=== PATIENT | male | born 1985 | race Caucasian/White ===

== ENCOUNTER 2017-05-14 09:42 | Emergency (ER) | payer OTHER ==
[2017-05-14 09:50] VITALS: BP 128/83
--- NOTE | 2017-05-14 10:19 | Emergency Department Report ---
ED Male HPI - General Chief complaint: Urogenital-Male Stated complaint: BURNING WITH UNRINATION Time Seen by Provider: 05/14/17 09:54 Source: patient Mode of arrival: Ambulatory Limitations: No Limitations - History of Present Illness Initial comments: 34-year-old male comes in for complaint of pain and burning with urination he reports positive discharge from the penis he reports that he was sexually active with the female will that the condom broke about 1-1/2 weeks ago and by a week ago he's been having dysuria and penile discharge and pain. Patient currently has no past medical history only of meningitis as a child, no known drug allergies. MD Complaint: penile discharge Location: penis Severity: mild Severity scale (0 -10): 0 - Related Data Previous Rx's Medication Instructions Recorded Last Taken Type Ciprofloxacin HCl [Ciprofloxacin 500 mg PO Q12H #20 tab 08/20/15 Unknown Rx TAB] Ibuprofen [Motrin 600 MG tab] 600 mg PO Q8H PRN #30 tablet 08/20/15 Unknown Rx Phenazopyridine [Pyridium] 100 mg PO TID #6 tab 08/20/15 Unknown Rx Doxycycline [Vibramycin CAP] 100 mg PO Q12HR 10 Days #20 capsule 05/14/17 Unknown Rx Allergies Allergy/AdvReac Type Severity Reaction Status Date / Time No Known Allergies Allergy Verified 08/20/15 08:58 ED Review of Systems ROS: Stated complaint: BURNING WITH UNRINATION Other details as noted in HPI Constitutional: denies: chills, fever Eyes: denies: eye pain, eye discharge, vision change ENT: denies: ear pain, throat pain Respiratory: denies: cough, shortness of breath, wheezing Cardiovascular: as per HPI Endocrine: no symptoms reported Gastrointestinal: denies: abdominal pain, nausea, diarrhea Genitourinary: dysuria, hematuria, discharge Musculoskeletal: denies: back pain, joint swelling, arthralgia Skin: denies: rash, lesions Neurological: denies: headache, weakness, paresthesias Psychiatric: denies: anxiety, depression Hematological/Lymphatic: denies: easy bleeding, easy bruising ED Past Medical Hx - Past Medical History Additional medical history: meningitis as a child - Surgical History Additional Surgical History: L hand - Social History Smoking Status: Current Every Day Smoker Substance Use Type: Alcohol - Medications Home Medications: Home Medications Medication Instructions Recorded Confirmed Last Taken Type Ciprofloxacin HCl [Ciprofloxacin 500 mg PO Q12H #20 tab 08/20/15 Unknown Rx TAB] Ibuprofen [Motrin 600 MG tab] 600 mg PO Q8H PRN #30 tablet 08/20/15 Unknown Rx Phenazopyridine [Pyridium] 100 mg PO TID #6 tab 08/20/15 Unknown Rx Doxycycline [Vibramycin CAP] 100 mg PO Q12HR 10 Days #20 capsule 05/14/17 Unknown Rx ED Physical Exam - General Limitations: No Limitations General appearance: alert, in no apparent distress - Head Head exam: Present: atraumatic, normocephalic - Eye Eye exam: Present: normal appearance - exam: Present: urethral discharge, circumcision. Absent: scrotal swelling, vertical testicular lie External exam: Present: normal external exam - Neurological Exam Neurological exam: Present: alert, oriented X3 - Psychiatric Psychiatric exam: Present: normal affect, normal mood ED Course Vital Signs 05/14/17 09:46 Temperature 98.0 F Pulse Rate 85 Respiratory 20 Rate Blood Pressure 128/83 O2 Sat by Pulse 99 Oximetry ED Medical Decision Making - Medical Decision Making Patient has been evaluated by this provider fast track. Cultures are collected urine was collected. Patient will be given Rocephin 250 mg IM as well as a Zithromax and 1 g and discharged on doxycycline. Discussed with patient that he needs to be sure's partner has been treated before returning to sexual activities with that person. He gets the risks of being exposed to again. Patient verbalized understanding. Critical care attestation.: If time is entered above; I have spent that time in minutes in the direct care of this critically ill patient, excluding procedure time. ED Disposition Clinical Impression: Concern about STD in male without diagnosis Disposition: DC-01 TO HOME OR SELFCARE Is pt being admited?: No Does the pt Need Aspirin: No Condition: Stable Instructions: Safe Sex (ED), Sexually Transmitted Diseases (ED) Additional Instructions: Please complete antibiotic as prescribed. Please have your partner treated prior to intercourse. Recommend to follow-up with the health department for further evaluation of HIV and herpes hepatitis and syphilis. Prescriptions: Doxycycline [Vibramycin CAP] 100 mg PO Q12HR 10 Days #20 capsule Referrals: [facility] [Outside] - 3-5 Days
[2017-05-14] MEDS ORDERED: ROCEPHIN IM ONE (10:21)
[2017-05-14] MEDS ORDERED: XYLOCAINE 1% MPF 5 mL INFILTRATI ONE (10:21)
[2017-05-14] MEDS ORDERED: ZITHROMAX PO ONE (10:22)
[2017-05-14 11:12] LABS: Bacteria,Urine 1+ /HPF (Negative); Bilirubin,Urine NEG (Negative); Blood,Urine SM (Negative); Ketones,Urine NEG (Negative); Leukocyte Esterase,Urine LG (Negative); Nitrite,Urine NEG (Negative); Protein,Urine <15 mg/dL mg/dL (Negative); Urobilinogen,Urine < 2.0 mg/dL (<2.0)
== END 2017-05-14 10:42 | disposition home or self-care (01) ==
LOC: ED 09:42
DX: R30.0 Dysuria (principal); R36.9 Urethral discharge, unspecified; F17.200 Nicotine dependence, unspecified, uncomplicated
CPT/HCPCS: 81001; 87086; 87591; 96372; 99283; J0696

== ENCOUNTER 2018-07-14 17:31 | Emergency (ER) | payer OTHER ==
[2018-07-14 17:37] VITALS: BP 129/82
--- NOTE | 2018-07-14 17:37 | Emergency Department Report ---
Chief Complaint: Urogenital-Male Stated Complaint: URINATION PAINFUL Time Seen by Provider: 07/14/18 17:36 - HPI History of Present Illness: here w penile drainage concern for sti no fever ambulatory no life threat MSE completed - Exam Vital Signs: Vital Signs 07/14/18 17:35 Temperature 97.6 F Pulse Rate 85 Respiratory 16 Rate Blood Pressure 129/82 O2 Sat by Pulse 98 Oximetry MSE screening note: Focused history and physical exam performed. Due to findings the following was ordered: ED Disposition for MSE Condition: Stable
[2018-07-14 18:24] LABS: Bacteria,Urine 1+ /HPF (Negative); Bilirubin,Urine NEG (Negative); Blood,Urine NEG (Negative); Color,Urine Straw (Yellow); Mucus,Urine FEW /HPF; Protein,Urine <15 mg/dL mg/dL (Negative); Urobilinogen,Urine < 2.0 mg/dL (<2.0)
[2018-07-14 18:27] LABS: WBC,Urine > 182.0 /HPF (0.0-6.0)
[2018-07-14] MEDS ORDERED: ROCEPHIN IM ONE (18:37)
[2018-07-14] MEDS ORDERED: XYLOCAINE 1% MPF 5 mL INFILTRATI ONE (18:37)
[2018-07-14] MEDS ORDERED: ZITHROMAX PO ONE (18:38)
--- NOTE | 2018-07-14 18:41 | Emergency Department Report ---
ED Dysuria HPI - HPI Chief Complaint: Urogenital-Male Stated Complaint: URINATION PAINFUL Time Seen by Provider: 07/14/18 17:36 Duration: 3 Days Location of Discomfort: Suprapubic Severity: Mild Symptoms: Dysuria: Yes, Frequency: No, Suprapubic Pain: No, Flank Pain: No, Fever: No, Hematuria: No, Abdominal Pain: No, Previous UTI's: No Other History: HERE W PENILE D/C. CONCERNED FOR STI. VSS. AFEBRILE ED Review of Systems ROS: Stated complaint: URINATION PAINFUL Other details as noted in HPI Comment: All other systems reviewed and negative Constitutional: denies: see HPI Eyes: denies: eye pain ENT: denies: ear pain Respiratory: denies: cough Cardiovascular: denies: dyspnea on exertion Endocrine: denies: flushing Gastrointestinal: denies: nausea Genitourinary: as per HPI, discharge Musculoskeletal: denies: as per HPI Skin: denies: lesions Neurological: denies: weakness Hematological/Lymphatic: denies: easy bleeding ED Past Medical Hx - Past Medical History Previous Medical History?: Yes Additional medical history: meningitis as a child - Surgical History Past Surgical History?: Yes Additional Surgical History: L hand - Social History Smoking Status: Never Smoker Substance Use Type: Alcohol - Medications Home Medications: Home Medications Medication Instructions Recorded Confirmed Last Taken Type Ciprofloxacin HCl [Ciprofloxacin 500 mg PO Q12H #20 tab 08/20/15 Unknown Rx TAB] Ibuprofen [Motrin 600 MG tab] 600 mg PO Q8H PRN #30 tablet 08/20/15 Unknown Rx Phenazopyridine [Pyridium] 100 mg PO TID #6 tab 08/20/15 Unknown Rx Doxycycline [Vibramycin CAP] 100 mg PO Q12HR 10 Days #20 capsule 05/14/17 Unknown Rx Dysuria Exam - Exam General: Vital signs noted. No distress. Alert and acting appropriately. Exam: Yes Moist Mucous Membranes, No CVA Tenderness, No Abdominal Tenderness, No Rigidity or Guarding Labs: Lab Results 07/14/18 Range/Units 17:43 Urine Color Straw (Yellow) Urine Turbidity Slightly-cloudy (Clear) Urine pH 7.0 (5.0-7.0) Ur Specific [place] 1.005 (1.003-1.030) Urine Protein <15 mg/dl (Negative) mg/dL Urine Glucose (UA) Neg (Negative) mg/dL Urine Ketones Neg (Negative) mg/dL Urine Blood Neg (Negative) Urine Nitrite Neg (Negative) Urine Bilirubin Neg (Negative) Urine Urobilinogen < 2.0 (<2.0) mg/dL Ur Leukocyte Esterase Lg (Negative) Urine WBC (Auto) > 182.0 H (0.0-6.0) /HPF Urine RBC (Auto) 13.0 (0.0-6.0) /HPF Urine Bacteria (Auto) 1+ (Negative) /HPF Urine Mucus Few /HPF ED Course Vital Signs 07/14/18 17:35 Temperature 97.6 F Pulse Rate 85 Respiratory 16 Rate Blood Pressure 129/82 O2 Sat by Pulse 98 Oximetry ED Medical Decision Making - Medical Decision Making STI CONCERNS URINE NOTED TX WITH AZITHROMYCIN AND ROCEPHIN Labs 07/14/18 17:43 Urine Color Straw Urine Turbidity Slightly-cloudy Urine pH 7.0 Ur Specific [place] 1.005 Urine Protein <15 mg/dl Urine Glucose (UA) Neg Urine Ketones Neg Urine Blood Neg Urine Nitrite Neg Urine Bilirubin Neg Urine Urobilinogen < 2.0 Ur Leukocyte Esterase Lg Urine WBC (Auto) > 182.0 H Urine RBC (Auto) 13.0 Urine Bacteria (Auto) 1+ Urine Mucus Few Critical care attestation.: If time is entered above; I have spent that time in minutes in the direct care of this critically ill patient, excluding procedure time. ED Disposition Clinical Impression: STI (sexually transmitted infection) Disposition: DC-01 TO HOME OR SELFCARE Is pt being admited?: No Does the pt Need Aspirin: No Condition: Stable Instructions: Sexually Transmitted Diseases (ED) Additional Instructions: SAFE SEX Referrals: [facility] [Outside] - 3-5 Days Time of Disposition: 18:39
== END 2018-07-14 19:33 | disposition home or self-care (01) ==
LOC: ED 17:31
DX: B33.8 Other specified viral diseases (principal)
CPT/HCPCS: 81001; 87591; 96372; 99283; J0696

== ENCOUNTER 2018-07-24 11:10 | Emergency (ER) | payer SELFPAY ==
--- NOTE | 2018-07-24 11:31 | Emergency Department Report ---
Blank Doc - Documentation Documentation: This is a 32-year-old male that presents with left foot pain. Denies any other injuries or complaints. This initial assessment diagnostic orders/clinical plan/treatment(s) is/are subject to change based on patient's health status, clinical progression and re- assessment by fellow clinical providers in the ED. Further treatment and workup at subsequent clinical providers discretion. Patient/guardians urged not to elope from ED s their condition may be serious if not clinically assessed and managed. Initial orders include: 1-Patient sent to [facility] for further evaluation and treatment 2- xray
[2018-07-24 11:33] VITALS: BP 122/71
--- NOTE | 2018-07-24 14:12 | XRay Report ---
FINAL REPORT EXAM: XR FOOT 3+V LT HISTORY: left foot pain COMPARISON: None. TECHNIQUE: Three views of the left FINDINGS: There is normal alignment without acute fracture or dislocation. The joint spaces are preserved. Ther e is normal bone mineral density. The overlying soft tissues are intact. There is no radiopaque forei gn body. IMPRESSION: No acute bony abnormality of the left foot.
--- NOTE | 2018-07-24 17:53 | Emergency Department Report ---
HPI - General Chief Complaint: Extremity Injury, Lower Time Seen by Provider: 07/24/18 11:30 - HPI HPI: This is a 32-year-old male presents to ED complaining of left foot pain and swelling status post injury about 2 weeks ago. Patient states he was rummaging through the dark at night when he accidentally stubbed his foot against a door. Patient states he thought. Pain would go away. Patient states the pain never went away so he came in to be evaluated today. He denies calf pain, swelling or difficulty walking. Patient states pain with applied pressure. ED Past Medical Hx - Past Medical History Additional medical history: meningitis as a child - Surgical History Additional Surgical History: L hand - Social History Smoking Status: Current Every Day Smoker Substance Use Type: Alcohol - Medications Home Medications: Home Medications Medication Instructions Recorded Confirmed Last Taken Type Ciprofloxacin HCl [Ciprofloxacin 500 mg PO Q12H #20 tab 08/20/15 Unknown Rx TAB] Phenazopyridine [Pyridium] 100 mg PO TID #6 tab 08/20/15 Unknown Rx Doxycycline [Vibramycin CAP] 100 mg PO Q12HR 10 Days #20 capsule 05/14/17 Unknown Rx Cyclobenzaprine [Flexeril] 10 mg PO QHS PRN #20 tablet 07/24/18 Unknown Rx Ibuprofen [Motrin 600 MG tab] 600 mg PO Q8H PRN #30 tablet 07/24/18 Unknown Rx ED Review of Systems ROS: Stated complaint: L FOOT PAIN Other details as noted in HPI Comment: All other systems reviewed and negative Physical Exam - Physical Exam Vital Signs: Vital Signs 07/24/18 11:31 Temperature 97.8 F Pulse Rate 80 Respiratory 18 Rate Blood Pressure 122/71 O2 Sat by Pulse 100 Oximetry General: GENERAL: Alert and oriented x3, no apparent distress, Normal Gait, atraumatic. HEAD: Head is normocephalic and a-traumatic. EXTREMITIES/MUSCULOSKELETAL: No cyanosis, clubbing, rash, lesions or edema. Full ROM bilaterally. UE/LE Pulses 2+ bilaterally. LE and UE 5+ strength bilaterally, nontender to palpation, left fifth digit tender to palpation. NEUROLOGIC: The patient is cooperative with no focal neurologic deficits SKIN: Warm and dry, No lesions, No ulceration or induration present. ED Course Vital Signs 07/24/18 11:31 Temperature 97.8 F Pulse Rate 80 Respiratory 18 Rate Blood Pressure 122/71 O2 Sat by Pulse 100 Oximetry ED Medical Decision Making - Radiology Data Radiology results: report reviewed, image reviewed No acute fracture or dislocation - Medical Decision Making This is a 32-year-old male presents with foot pain X-ray shows no acute process he is in no acute distress. Discussed follow-up with primary care physician. Vital signs are normal Critical care attestation.: If time is entered above; I have spent that time in minutes in the direct care of this critically ill patient, excluding procedure time. ED Disposition Clinical Impression: Foot pain, left, Toe contusion Disposition: DC- TO HOME OR SELFCARE Is pt being admited?: No Does the pt Need Aspirin: No Condition: Stable Instructions: Arthralgia (ED), Foot Sprain (ED) Additional Instructions: Make sure to follow up with the primary care physician as discussed. Warm compress application 3 times a day to the foot. Soak left foot in Epsom salt Take all your medications as you've been prescribed. If you have any worsening symptoms or develop new symptoms please return to ED immediately. Prescriptions: Cyclobenzaprine [Flexeril] 10 mg PO QHS PRN #20 tablet PRN Reason: Muscle Spasm Ibuprofen [Motrin 600 MG tab] 600 mg PO Q8H PRN #30 tablet PRN Reason: Pain Referrals: HILL SEGURA MD [Primary Care Provider] - 3-5 Days Forms: Work/School Release Form(ED) Time of Disposition: 17:53
== END 2018-07-24 18:02 | disposition home or self-care (01) ==
LOC: ED 11:10
DX: S90.122A Contusion of left lesser toe(s) without damage to nail, initial encounter (principal); F17.200 Nicotine dependence, unspecified, uncomplicated; W22.03XA Walked into furniture, initial encounter; Y93.89 Activity, other specified; Y92.89 Other specified places as the place of occurrence of the external cause; Y99.8 Other external cause status
CPT/HCPCS: 99283

== ENCOUNTER 2020-11-13 19:22 | Emergency (ER) | payer OTHER ==
[2020-11-13 19:48] VITALS: BP 121/86
[2020-11-13] MEDS ORDERED: IBUPROFEN 800 MG TAB PO ONE (19:48)
[2020-11-13] MEDS ORDERED: IBUPROFEN 800 MG TAB ONE (19:49)
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
== END 2020-11-13 20:45 | disposition home or self-care (01) ==
LOC: ED 19:22
DX: J02.9 Acute pharyngitis, unspecified (principal); Z98.890 Other specified postprocedural states; Z79.899 Other long term (current) drug therapy; Z79.1 Long term (current) use of non-steroidal anti-inflammatories (NSAID); Z79.2 Long term (current) use of antibiotics; Z88.8 Allergy status to other drugs, medicaments and biological substances
CPT/HCPCS: 99282

== ENCOUNTER 2021-10-08 08:10 | Emergency (ER) | payer OTHER ==
[2021-10-08 09:12] VITALS: BP 132/81
--- NOTE | 2021-10-08 11:23 | Emergency Department Report ---
- General Chief Complaint: Pain General Stated Complaint: THROAT PAIN/HEADACHE/TONSIL INFLAMED Source: patient Mode of arrival: Ambulatory Limitations: No Limitations - History of Present Illness Initial Comments: 35-year-old male presents to the ED complaining sore throat, headache, nasal congestion, cough x2 weeks. Patient states that family member has similar complaints are all feeling better now. Patient states that most of the pain is in his facial area. Patient states that when he awakened in the morning the cough is worse. Patient states that sore throat and facial pain is a current 6 out of 10. Patient states taking Aleve prior to coming to the ED. patient states he is COVID vaccinated. Patient is alert and oriented x3. No acute distress noted. No ill appearance noted. Patient denies any chest pain shortness of breath or abdominal pain at present time. MD Complaint: fever, cough, sore throat, nasal congestion Onset/Timin -: Gradual Severity scale (0 -10): 6 Consistency: intermittent Improves With: nothing Worsens With: nothing Context: sick contacts Associated Symptoms: fever, cough - Related Data Previous Rx's Medication Instructions Recorded Last Taken Type Ciprofloxacin HCl [Ciprofloxacin 500 mg PO Q12H #20 tab 08/20/15 Unknown Rx TAB] Phenazopyridine [Pyridium] 100 mg PO TID #6 tab 08/20/15 Unknown Rx DOXYCYCLINE Hyclate [Vibramycin 100 mg PO Q12HR 10 Days #20 capsule 05/14/17 Unknown Rx CAP] Cyclobenzaprine [Flexeril] 10 mg PO QHS PRN #20 tablet 07/24/18 Unknown Rx Ibuprofen [Motrin 600 MG tab] 600 mg PO Q8H PRN #30 tablet 07/24/18 Unknown Rx Amoxicillin/Potassium Clav 1 each PO BID 7 Days #14 tablet 11/13/20 Unknown Rx [Augmentin 875-125 Tablet] Ibuprofen [Motrin 800 MG tab] 800 mg PO Q8HR PRN #30 tablet 11/13/20 Unknown Rx predniSONE [Deltasone] 40 mg PO QDAY 5 Days #10 tab 11/13/20 Unknown Rx Amoxicillin/K Clav Tab [Augmentin 1 tab PO Q12HR 10 Days #20 tab 10/08/21 Unknown Rx 875 mg] Brompheniramine/Pseudoephed/Dm 5 ml PO BID 5 Days #118 ml 10/08/21 Unknown Rx [Bromfed Dm Cough Syrup] Ibuprofen [Motrin] 800 mg PO Q8HR PRN 15 Days #30 10/08/21 Unknown Rx tablet predniSONE [Deltasone] 50 mg PO QDAY 5 Days #5 tab 10/08/21 Unknown Rx Allergies Allergy/AdvReac Type Severity Reaction Status Date / Time acetaminophen Allergy Hives Verified 11/13/20 19:46 ED Review of Systems ROS: Stated complaint: THROAT PAIN/HEADACHE/TONSIL INFLAMED Other details as noted in HPI Constitutional: chills, fever Eyes: denies: eye pain, eye discharge, vision change ENT: ear pain, throat pain, congestion Respiratory: cough. denies: shortness of breath, wheezing Cardiovascular: denies: chest pain, palpitations Endocrine: no symptoms reported Gastrointestinal: denies: abdominal pain, nausea, diarrhea Genitourinary: denies: urgency, dysuria Musculoskeletal: denies: back pain, joint swelling, arthralgia Skin: denies: rash, lesions Neurological: denies: headache, weakness, paresthesias Psychiatric: denies: anxiety, depression Hematological/Lymphatic: denies: easy bleeding, easy bruising ED Past Medical Hx - Past Medical History Additional medical history: meningitis as a child - Surgical History Additional Surgical History: L hand - Social History Smoking Status: Never Smoker Substance Use Type: Alcohol - Medications Home Medications: Home Medications Medication Instructions Recorded Confirmed Last Taken Type Ciprofloxacin HCl [Ciprofloxacin 500 mg PO Q12H #20 tab 08/20/15 Unknown Rx TAB] Phenazopyridine [Pyridium] 100 mg PO TID #6 tab 08/20/15 Unknown Rx DOXYCYCLINE Hyclate [Vibramycin 100 mg PO Q12HR 10 Days #20 capsule 05/14/17 Unknown Rx CAP] Cyclobenzaprine [Flexeril] 10 mg PO QHS PRN #20 tablet 07/24/18 Unknown Rx Ibuprofen [Motrin 600 MG tab] 600 mg PO Q8H PRN #30 tablet 07/24/18 Unknown Rx Amoxicillin/Potassium Clav 1 each PO BID 7 Days #14 tablet 11/13/20 Unknown Rx [Augmentin 875-125 Tablet] Ibuprofen [Motrin 800 MG tab] 800 mg PO Q8HR PRN #30 tablet 11/13/20 Unknown Rx predniSONE [Deltasone] 40 mg PO QDAY 5 Days #10 tab 11/13/20 Unknown Rx Amoxicillin/K Clav Tab [Augmentin 1 tab PO Q12HR 10 Days #20 tab 10/08/21 Unknown Rx 875 mg] Brompheniramine/Pseudoephed/Dm 5 ml PO BID 5 Days #118 ml 10/08/21 Unknown Rx [Bromfed Dm Cough Syrup] Ibuprofen [Motrin] 800 mg PO Q8HR PRN 15 Days #30 10/08/21 Unknown Rx tablet predniSONE [Deltasone] 50 mg PO QDAY 5 Days #5 tab 10/08/21 Unknown Rx ED Physical Exam - General Limitations: No Limitations General appearance: alert, in no apparent distress - Head Head exam: Present: atraumatic, normocephalic - Eye Eye exam: Present: normal appearance - ENT ENT exam: Present: mucous membranes moist - Expanded ENT Exam Expanded Throat exam: Positive: tonsillar erythema, other (Postnasal drip) - Neck Neck exam: Present: normal inspection - Respiratory Respiratory exam: Present: normal lung sounds bilaterally. Absent: respiratory distress - Cardiovascular Cardiovascular Exam: Present: regular rate, normal rhythm. Absent: systolic murmur, diastolic murmur, rubs, gallop - GI/Abdominal GI/Abdominal exam: Present: soft, normal bowel sounds - Rectal Rectal exam: Present: deferred - Extremities Exam Extremities exam: Present: normal inspection - Back Exam Back exam: Present: normal inspection - Neurological Exam Neurological exam: Present: alert, oriented X3 - Psychiatric Psychiatric exam: Present: normal affect, normal mood - Skin Skin exam: Present: warm, dry, intact, normal color. Absent: rash ED Course Vital Signs 10/08/21 10/08/21 09:05 12:10 Temperature 99.9 F H 99.1 F Pulse Rate 105 H 96 H Respiratory 18 16 Rate Blood Pressure 132/81 Blood Pressure 132/81 132/81 [Left] O2 Sat by Pulse 97 99 Oximetry ED Medical Decision Making - Medical Decision Making 35-year-old male presents to the ED complaining sore throat, headache, nasal congestion, cough x2 weeks. Patient states that family member has similar complaints are all feeling better now. Patient states that most of the pain is in his facial area. Patient states that when he awakened in the morning the c ough is worse. Patient states that sore throat and facial pain is a current 6 out of 10. Patient states taking Aleve prior to coming to the ED. patient states he is COVID vaccinated. Patient is alert and oriented x3. No acute distress noted. No ill appearance noted. Patient denies any chest pain shortness of breath or abdominal pain at present time. Physical examination patient has tenderness noted to the frontal cavity . Nasal turbulent swollen. Post nasal drip noted. Rechecked the patient is resting quietly quietly and comfortable and feeling better. I discussed the results of diagnostic study, my clinical impression and the plan for further treatment with the patient. Patient agrees with plan and discharge at this present time. All question addressed. I have given the patient instruction regarding a diagnosis ,expectation ,follow- up and return precaution. I explained to the patient that emergent condition may arise and to return to the ED for new worsen and any new persisting condition. I have explained the importance of following up with the primary care physician or referral physician listed below has instructed. The patient verbalized understanding of discharge instruction. Critical care attestation.: If time is entered above; I have spent that time in minutes in the direct care of this critically ill patient, excluding procedure time. ED Disposition Clinical Impression: Acute sinusitis Qualifiers: Sinusitis location: frontal Recurrence: non-recurrent Qualified Code(s): J01.10 - Acute frontal sinusitis, unspecified Disposition: 01 HOME / SELF CARE / HOMELESS Is pt being admited?: No Does the pt Need Aspirin: No Condition: Stable Instructions: Sinusitis, Adult, [id number], How to Perform a Sinus Rinse, [id number] Additional Instructions: Take medication as prescribed Return to the ED for any worsening symptom Prescriptions: Amoxicillin/K Clav Tab [Augmentin 875 mg] 1 tab PO Q12HR 10 Days #20 tab Brompheniramine/Pseudoephed/Dm [Bromfed Dm Cough Syrup] 5 ml PO BID 5 Days #118 ml predniSONE [Deltasone] 50 mg PO QDAY 5 Days #5 tab Ibuprofen [Motrin] 800 mg PO Q8HR PRN 15 Days #30 tablet PRN Reason: Pain, Mild (1-3) Referrals: [facility] [Provider Group] - 3-5 Days Forms: Work/School Release Form(ED) Print Language: ICELANDIC
== END 2021-10-08 12:10 | disposition home or self-care (01) ==
LOC: ED 08:10
DX: J01.90 Acute sinusitis, unspecified (principal); F10.20 Alcohol dependence, uncomplicated; Z88.6 Allergy status to analgesic agent
CPT/HCPCS: 99282